=== PATIENT | male | born 1970 | race Caucasian/White ===

== ENCOUNTER 2020-12-08 22:38 | Emergency (ER) | payer OTHER ==
[~2020-12-08] VITALS: Ht 200.7 cm; Wt 154.2 kg
[2020-12-08] MEDS ORDERED: METFORMIN HCL500 M3 PO (23:04)
[2020-12-08] MEDS ORDERED: XARELTO20 MG PO (23:04)
[2020-12-08] MEDS ORDERED: TOPROL XL25 MG PO (23:04)
[2020-12-08] MEDS ORDERED: PLAVIX 75 MG TA75 MG PO ×2 (23:05→23:06)
[2020-12-08] MEDS ORDERED: VALSARTAN40 MG PO (23:05)
[2020-12-08] MEDS ORDERED: LIPITOR40 MG PO (23:05)
[2020-12-09] MEDS ORDERED: HYDROCODON-ACE1 EAC8 PO (03:02)
[2020-12-09 03:50] VITALS: BP 132/85
== END 2020-12-09 03:50 | disposition home or self-care (01) ==
LOC: M.ERS 22:38
DX: S69.91XA Unspecified injury of right wrist, hand and finger(s), initial encounter (principal); S59.901A Unspecified injury of right elbow, initial encounter; I10 Essential (primary) hypertension; Z88.5 Allergy status to narcotic agent; Z79.899 Other long term (current) drug therapy; Z98.890 Other specified postprocedural states; V69.49XA Driver of heavy transport vehicle injured in collision with other motor vehicles in traffic accident, initial encounter; Y93.I9 Activity, other involving external motion; Y92.413 State road as the place of occurrence of the external cause; Y99.8 Other external cause status